=== PATIENT | male | born 1955 | race Caucasian/White ===

== ENCOUNTER 2021-10-11 11:13 | Emergency (ER) | payer SELFPAY ==
[2021-10-11] MEDS ORDERED: Fluorescein 1 MG Ophth Strip EYELF ONE (11:42)
[2021-10-11] MEDS ORDERED: Proparacaine 0.5% Ophth Soln 15 ML Bottle EYELF ONE (11:45)
[2021-10-11] MEDS ORDERED: Ciprofloxacin 0.3% Ophth Soln 5 ML Bottle EYELF SCH (12:30)
== END 2021-10-11 12:35 | disposition home or self-care (01) ==
LOC: JD.ED 11:13
DX: T15.92XA Foreign body on external eye, part unspecified, left eye, initial encounter (principal)
CPT/HCPCS: 99283; A9270

== ENCOUNTER 2021-10-21 18:12 | Emergency (ER) | payer SELFPAY ==
[2021-10-21] MEDS ORDERED: Sodium Chloride 0.9% 10 ML Syringe FLUSH PRN (19:34)
[2021-10-21] MEDS ORDERED: Heparin Sodium 5,000 Units/ML Vial IVPUSH ONE (19:57)
[2021-10-21] MEDS ORDERED: Heparin Sodium/D5W 25,000 UNITS/500 ML BAG IV SCH (20:00)
[2021-10-21 20:54] LABS: CORONAVIRUS COVID-19 NAA NEGATIVE (NEGATIVE)
== END 2021-10-21 21:20 ==
LOC: JD.ED 18:12
DX: I21.4 Non-ST elevation (NSTEMI) myocardial infarction (principal); F17.210 Nicotine dependence, cigarettes, uncomplicated; Z20.822 Contact with and (suspected) exposure to COVID-19
CPT/HCPCS: 0240U; 36415; 71045; 80053; 83735; 84484; 85025; 85610; 85730; 86140; 93005; 96365; 99285; J1644; J3490

== ENCOUNTER 2024-03-23 22:47 | Emergency (ER) | payer MEDICARE ==
[2024-03-23] MEDS ORDERED: Proparacaine 0.5% Ophth Soln 15 ML Bottle ONE (23:27)
[2024-03-23] MEDS: Fluorescein 1 MG Ophth Strip EYERT ONE (23:29)
[2024-03-23] MEDS: Proparacaine 0.5% Ophth Soln 15 ML Bottle EYERT SCH (23:30)
[2024-03-24] MEDS: Erythromycin Base 0.5% Ophth Oint 1 GM Tube EYERT ONE (02:10)
== END 2024-03-24 02:11 | disposition home or self-care (01) ==
LOC: JD.ED 22:47
DX: T15.01XA Foreign body in cornea, right eye, initial encounter (principal); F17.210 Nicotine dependence, cigarettes, uncomplicated; I25.2 Old myocardial infarction; I10 Essential (primary) hypertension; E78.00 Pure hypercholesterolemia, unspecified; Z86.16 Personal history of COVID-19; Z95.5 Presence of coronary angioplasty implant and graft; Z79.899 Other long term (current) drug therapy; W44.9XXA Unspecified foreign body entering into or through a natural orifice, initial encounter
CPT/HCPCS: 99283; A9270; 99282; J3490